=== PATIENT | male | born 1995 | race African-American/Black ===

== ENCOUNTER 2024-03-25 21:13 | Emergency (ER) | payer OTHER, SELFPAY ==
[2024-03-25] MEDS ORDERED: Ketorolac Tromethamine 30 MG (1 mL) VIAL ONE (22:48)
== END 2024-03-25 23:10 | disposition home or self-care (01) ==
LOC: CSHERS 21:13
DX: S92.351A Displaced fracture of fifth metatarsal bone, right foot, initial encounter for closed fracture (principal); F17.210 Nicotine dependence, cigarettes, uncomplicated; I10 Essential (primary) hypertension; X58.XXXA Exposure to other specified factors, initial encounter
CPT/HCPCS: 28470; 96372; J1885